=== PATIENT | male | born 1975 | race Two or more races ===

== ENCOUNTER 2019-10-07 14:35 | Emergency (ER) | payer MEDICAID ==
[~2019-10-07] VITALS: Ht 188 cm; Wt 82.6 kg
[2019-10-07 15:54] LABS: Urine Bacteria NONE SEEN /hpf (None Seen); Urine Blood 1+ /uL (Negative); Urine Mucus FEW (None Seen); Urine Specific Gravity 1.019 (1.001-1.035); Urine WBC 1 /hpf (0 - 3)
[2019-10-07 21:53] VITALS: BP 129/89
[2019-10-07] MEDS ORDERED: KETOROLAC TROMETH 60MG/2ML VIAL IM ONE (22:00)
== END 2019-10-07 22:43 | disposition home or self-care (01) ==
LOC: ER 14:35
DX: N13.2 Hydronephrosis with renal and ureteral calculous obstruction (principal)
CPT/HCPCS: 74176; 81001; 96372; 99284; J1885

== ENCOUNTER 2022-05-22 13:33 | Emergency (ER) | payer MEDICAID ==
[~2022-05-22] VITALS: Ht 182.9 cm; Wt 118.8 kg
[2022-05-22 15:25] VITALS: BP 139/84
[2022-05-22] MEDS ORDERED: KETOROLAC TROMETH 60MG/2ML VIAL IM ONE (15:45)
[2022-05-22] MEDS ORDERED: METH750T22 PO (16:16)
[2022-05-22] MEDS ORDERED: IBUP800T27 PO (16:16)
== END 2022-05-22 16:27 | disposition home or self-care (01) ==
LOC: ER 13:33
DX: S39.012A Strain of muscle, fascia and tendon of lower back, initial encounter (principal); Z87.442 Personal history of urinary calculi; X50.0XXA Overexertion from strenuous movement or load, initial encounter; Y93.89 Activity, other specified; Y92.89 Other specified places as the place of occurrence of the external cause; Y99.8 Other external cause status
CPT/HCPCS: 72100; 96372; 99283; J1885

== ENCOUNTER 2024-02-15 23:30 | Emergency (ER) | payer MEDICAID ==
[~2024-02-15] VITALS: Ht 188 cm; Wt 108.9 kg
[~2024-02-15 23:30] MED LIST: IBUP-1456 PO; METH-1182 PO
--- NOTE | 2024-02-16 | ED.PDOC ---
History of Present Illness HPI Comments A 48 year old male brought in my EMS with son present, presents to the ED with a chief complaint of nosebleed. Son states the patient had 3 nosebleeds today throughout the day, lasting about 5-7 minutes each time. Patient checked his BP two different times and it was around 170/110. Patient has not seen PCP for a few years, has a past medical history of Asthma, HTN, Kidney stones and is not taking any medication. Son also states the patient was experiencing a cough yesterday with blood in phlegm. Denies dizziness, chest pain, shortness of breath, congestion, headache, blurry vision. No other symptoms or modifying factors present at this time. Chief Complaint: High Blood Pressure Time Seen by MD: 23:47 Primary Care Provider: ESTHER Kline Notes: Medications, Allergies Allergies: Coded Allergies: NO KNOWN ALLERGIES (Unverified , 10/07/19) Home Meds Active Scripts Methocarbamol (Methocarbamol) 750 Mg Tab, 750 MG PO QHSP PRN, #20 TAB Prov:ERIN CARVAJAL 05/22/22 Ibuprofen (Ibuprofen) 800 Mg Tab, 1 TAB PO TID, #30 TAB Prov:ERIN CARVAJAL 05/22/22 Information Source: Patient, Relative (Child), Emergency Med Personnel Mode of Arrival: EMS Severity: Moderate Timing: Hours Duration: Since onset Prehospital treatment: None Vital Signs Vital Signs Date Time Temp Pulse Resp B/P (MAP) Pulse Ox O2 Delivery O2 Flow Rate FiO2 02/16/24 02:25 160/107 02/16/24 02:20 70 18 97 Room Air* 0 21 02/16/24 02:20 98.3 98.3 Physical Exam General: Awake, alert and oriented. No acute distress. Skin: Skin in warm, dry and intact. Appropriate color for ethnicity. Nailbeds pink with no cyanosis. HEENT: The head is normocephalic and atraumatic. Conjunctivae are clear without exudates or hemorrhage. Sclera is non-icteric. EOM are intact. No signs of nystagmus. Eyelids are normal in appearance without swelling or lesions. Oral mucosa is pink and moist. No epistaxis. No septal hematoma. Neck: The neck is supple with normal range of motion. No JVD. Cardiac: Heart rate and rhythm are normal. No murmurs, gallops, or rubs are auscultated. Respiratory: No signs of respiratory distress. Lung sounds are clear in all lobes bilaterally without rales, ronchi, or wheezes. Abdominal: Abdomen is soft, non-tender without distention. Bowel sounds are present and normoactive in all four quadrants. Extremities: Upper and lower extremities are atraumatic in appearance without deformity or edema. Neurological: The patient is awake, alert and oriented to person, place, and time with normal speech. Speech is clear. There is no facial asymmetry. Psychiatric: Appropriate mood and affect. Good judgement and insight. No visual or auditory hallucinations. Review of Systems: REVIEW OF SYSTEMS: No fever, no chills, or fatigue HEENT: No sore throat, no earache, no congestion, no neck pain. Positive nosebleed Cardiac: No chest pain. No palpitations. Lungs: No shortness of breath, positive cough. Positive hemoptysis, resolved GI: No nausea, no vomiting, no diarrhea, no constipation, no abdominal pain : No dysuria, frequency, or urgency. No hematuria. Musculoskeletal: No joint pain , no joint swelling, no extremity edema. Skin: No rash, no itching. Neuro: No headache, no dizziness, no weakness Past Medical History PAST MEDICAL HISTORY: Asthma, Kidney Stones Surgical History: Denies all surgeries Family History Family History: Reviewed,noncontributory to illness Social History Smoker: Non-Smoker Alcohol: Denies ETOH Use Drugs: Denies Drug Use Lives In: Home Was a procedure done? Was a procedure done?: No Differential Dx Considerations may include: Allergic rhinitis, hypertensive urgency, hypertensive emergency, coagulopathy, pulmonary embolism, pneumonia, bronchitis, other X-Ray, Labs, Meds, VS Vital Signs Date Time Temp Pulse Resp B/P (MAP) Pulse Ox O2 Delivery O2 Flow Rate FiO2 02/16/24 02:25 160/107 02/16/24 02:20 70 18 97 Room Air* 0 21 02/16/24 02:20 98.3 70 18 160/107 (124) 97 98.3 02/15/24 23:35 98.2 76 18 181/98 (125) 99 Lab Test 02/15/24 23:55 Range/Units White Blood Count 11.9 H 4.4-10.8 10^3/uL Red Blood Count 5.27 4.5-5.90 10^6/uL Hemoglobin 15.4 13.5-17.5 g/dL Hematocrit 45.3 41.0-53.0 % Mean Corpuscular Volume 85.9 80.0-100.0 fL Mean Corpuscular Hemoglobin 29.3 28.0-32.0 pg Mean Corpuscular Hemoglobin Concent 34.1 32.0-36.0 g/dL Red Cell Distribution Width 13.1 11.8-14.3 % Platelet Count 135 L 140-450 10^3/uL Mean Platelet Volume 11.7 H 6.9-10.8 fL Neutrophils (%) (Auto) 63.1 37.0-80.0 % Lymphocytes (%) (Auto) 25.7 10.0-50.0 % Monocytes (%) (Auto) 5.9 0.0-12.0 % Eosinophils (%) (Auto) 4.3 0.0-7.0 % Basophils (%) (Auto) 1.0 0.0-2.0 % Neutrophils # (Auto) 7.5 1.6-8.6 10 ^3/uL Lymphocytes # (Auto) 3.1 0.4-5.4 10 ^3/uL Monocytes # (Auto) 0.7 0-1.3 10 ^3/uL Eosinophils # (Auto) 0.5 0-0.8 10 ^3/uL Basophils # (Auto) 0.1 0-0.2 10 ^3/uL Nucleated Red Blood Cells 0.0 % Prothrombin Time 10.4 9.3-11.8 sec Prothrombin Time INR 0.98 0.9-1.15 Activated Partial Thromboplast Time 28.2 24.5-34.5 SEC Sodium Level 141 136-145 mmol/L Potassium Level 4.4 3.5-5.1 mmol/L Chloride Level 105 98-107 mmol/L Carbon Dioxide Level 29 20-31 mmol/L Anion Gap 7 5-15 Blood Urea Nitrogen 14 9-23 mg/dL Creatinine 0.99 0.700-1.30 mg/dL Glomerular Filtration Rate Calc 95 >90 mL/min BUN/Creatinine Ratio 14.1 10.0-20.0 Serum Glucose 105 74-106 mg/dL Calcium Level 9.9 8.7-10.4 mg/dL Total Bilirubin 0.5 0.2-1.0 mg/dL Aspartate Amino Transferase (AST) 25 13-40 U/L Alanine Aminotransferase (ALT) 62 H 7-40 U/L Alkaline Phosphatase 84 46-116 U/L Total Protein 7.1 5.7-8.2 g/dL Albumin 4.9 H 3.2-4.8 g/dL [place] [id number] Ph: [phone] DIAGNOSTIC IMAGING Diagnostic Imaging Report : [id number] Signed PATIENT: KRISTY GONZALEZCCT: [id number] UNIT: [id number] : 1975 LOC: ER ROOM / BED: / AGE / SEX: 48 / M ADM STATUS: REG ER SERVICE 54 ORDERING PHYSICIAN: FELIX VILLEGAS MD PROCEDURE(s): CXR2 - CHEST TWO VIEWS ROUTINE REASON: hemoptysis ORDER NUMBER(s): [id number], ACCESSION NUMBER(s): [id number] CHEST RADIOGRAPH Indication: hemoptysis Technique: Frontal and lateral view of the chest was obtained Comparison: None FINDINGS: Lines and Tubes: None Lungs: Clear Pleura: No effusion. No pneumothorax. Cardiomediastinal contours: Unremarkable Bones: Unremarkable IMPRESSION: 1. No evidence of acute disease. ATED BY: FABBY RICE MD DICTATED DATE/TIME: 02/16/2435 SIGNED BY: FABBY RICE MD SIGNED DATE/TIME: 02/16/2435 CC: Time of 1ST Reevaluation: 00:17 Reevaluation 1ST: Unchanged Patient Education/Counseling: Diagnosis, Treatment, Prognosis Family Education/Counseling: Diagnosis, Treatment, Prognosis Departure 1 Departure Time of Disposition: 01:28 Impression: Primary Impression: Epistaxis Additional Impression: Elevated blood pressure reading Disposition: 01 HOME / SELF CARE / HOMELESS Condition: Stable Additional Instructions: ED DISCHARGE INSTRUCTIONS Instructions: Please read all instructions provided in this packet carefully. Although you have been discharged from the Emergency Department, this does not mean that you have a "clean bill of health". No definitive diagnosis for your symptoms has been made today. It is possible that you are in the process of dev eloping a serious illness. This is why you must return to the ED without fail if any new or worsening symptoms (especially if your symptoms include continued nosebleeds, bleeding from elsewhere, coughing up blood, chest pain, trouble breathing, abdominal pain, fever, headache, confusion, trouble seeing, or trouble walking) It is also very important that you see a primary care doctor within the next 3-5 days to follow up. Call to schedule an appointment with a new primary care provider. [phone] Dr. Ole Lange or Dr. Karri Rooney If you are unable to get an appointment, return to the ED for re-evaluation. What is high blood pressure? Blood pressure is a measure of how hard the blood pushes against the mendoza of your arteries. It's normal for blood pressure to go up and down throughout the day. But if it stays up, you have high blood pressure (hypertension). Two numbers tell you your blood pressure. The first (top) number is the systolic pressure. It shows how hard the blood pushes when your heart is pumping. The second (bottom) number is the diastolic pressure. It shows how hard the blood pushes between heartbeats, when your heart is relaxed and filling with blood. High blood pressure means that the top number stays high, or the bottom number stays high, or both. For diagnosis, the top number may be 130 to 140 or higher. The bottom number may be 80 to 90 or higher High blood pressure increases the risk of stroke, heart attack, and other problems. What causes it? Experts don't fully understand the exact cause of high blood pressure. But they know that some things are linked to it. These include aging, drinking too much a lcohol, eating a lot of sodium (salt), being overweight, and not exercising. What are the symptoms? High blood pressure doesn't usually cause symptoms. Most people don't know they have it until they go to the doctor for some other reason. Very high blood pressure (such as 180/120 or higher) can cause severe headaches and vision problems. How is it diagnosed? During a routine visit, your doctor will measure your blood pressure. Your doctor may ask you to test it again when you are home.[id number], footnote4 This is because your blood pressure can change throughout the day. To diagnose high blood pressure, your doctor needs to know if your blood pressure is high throughout the day. How is high blood pressure treated? The two types of treatment for high blood pressure are lifestyle changes and medicines. Your doctor may ask you to lose extra weight, eat less sodium, and be more active. If these lifestyle changes don't help enough, you may also need to take daily medicines. What can you do to prevent it? A heart-healthy lifestyle can help you prevent high blood pressure. These changes are even more important if you have risk factors for high blood pressure that you can't change. These risk factors include race, age, and having others in your family who have high blood pressure. Here are some things you can do. Stay at a healthy weight. Eat heart-healthy foods, and limit sodium. Get regular exercise. Limit alcohol to 2 drinks a day for men and 1 drink a day for women. What Happens When blood pressure is high, it starts to damage blood vessels, called arteries, and your heart. Damaged arteries can lead to problems throughout your body. The higher your blood pressure, the greater your risk. This damage doesn't happen all at once. It happens slowly over time. But you can't tell that it's happening, because you don't feel anything. High blood pressure can lead to: Heart failure. High blood pressure makes your heart work harder. And that can lead to heart failure, which means your heart doesn't pump as much blood as your body needs. Heart attack and stroke. High blood pressure can cause atherosclerosis or "hardening of the arteries." This problem happens when the inner lining of an artery is damaged. Fat and calcium can build up in the artery wall. This buildup is called plaque. Over time, plaque can cause problems throughout the body. These problems include coronary artery disease, peripheral artery disease, heart attack, and stroke. Vision loss and kidney disease. Arteries also carry blood and oxygen to organs like your eyes and kidneys. If high blood pressure damages those arteries, it can lead to vision loss and kidney disease. Problems in your brain. High blood pressure can also affect the arteries in your brain, raising the risk of dementia and a stroke caused by bleeding in the brain. High blood pressure usually can't be cured. But it can be controlled. Lowering blood pressure lowers the risk of damaging blood vessels. To lower it, you may make lifestyle changes, take medicines each day, or both. Nosebleeds: Care Instructions Overview Nosebleeds are common, especially if you have colds or allergies. Many things can cause a nosebleed. Some nosebleeds stop on their own with pressure. Others need packing. Some get cauterized (sealed). If you have gauze or other packing materials in your nose, you will need to follow up with your doctor to have the packing removed. You may need more treatment if you get nosebleeds a lot. Follow-up care is a aquino part of your treatment and safety. Be sure to make and go to all appointments, and call your doctor if you are having problems. It's also a good idea to know your test results and keep a list of the medicines you take. How can you care for yourself at home? If you get another nosebleed: Gently blow your nose to clear any clots. Sit up and tilt your head slightly forward. This keeps blood from going down your throat. Use your thumb and index finger to pinch the front, soft part of your nose shut for at least 15 minutes. Use a clock. Do not check to see if the bleeding has stopped before the 15 minutes are up. If the bleeding has not stopped, pinch your nose shut for another 10 to 15 minutes. Using a nasal decongestant spray such as oxymetazoline (Afrin) before pinching your nose can also help to stop the bleeding. Be safe with medicines. Read and follow all instructions on the label. When the bleeding has stopped, try not to pick, rub, or blow your nose for several hours. Avoiding these things helps keep your nose from bleeding again. To prevent nosebleeds Do not blow your nose too hard. Try not to lift or strain after a nosebleed. Raise your head on a pillow while you sleep. Put a thin layer of a saline- or water-based nasal gel, such as NasoGel, inside your nose. Put it on the septum, which divides your nostrils. This will prevent dryness that can cause nosebleeds. Use a vaporizer or humidifier to add moisture to your bedroom. Follow the dire ctions for cleaning the machine. Do not use aspirin, ibuprofen (Advil, Motrin), or naproxen (Aleve) for 36 to 48 hours after a nosebleed unless your doctor tells you to. You can use acetaminophen (Tylenol) for pain relief. Talk to your doctor about stopping any other medicines you are taking. Some medicines may make you more likely to get a nosebleed. Do not use cold medicines or nasal sprays without first talking to your doctor. They can make your nose dry. Do not snort tobacco, drugs, or any other drying substances up your nose. When should you call for help? Call 911 anytime you think you may need emergency care. For example, call if: You passed out (lost consciousness). Call your doctor now or seek immediate medical care if: Your nose is still bleeding after you have pinched the nose shut 2 times for 15 minutes each time (30 minutes total). There is a lot of blood running down the back of your throat even after you pinch your nose and tilt your head forward. You feel weak or lightheaded. You have a nosebleed after a head injury. Watch closely for changes in your health, and be sure to contact your doctor if: You get nosebleeds often, even if they stop. You do not get better as expected. Comments 48-year-old male who presented with epistaxis throughout the is a resolved by the time he was at the emergency department. Elevated blood pressure at home. Patient has no known diagnosis of hypertension, he does not have a primary care provider. Workup here remarkable. Blood pressure improved. Patient felt stable for discharge home, he is advised to establish with and follow up with the primary care provider for further evaluation and reassessment. He is advised to return to the emergency department if he is unable to get an appointment within the next 3-5 days. I reviewed the following notes from the pt's past medical encounters: None available for review The following tests were ordered, and results were reviewed by me: Lab studies, EKG, chest x-ray Additional information was gathered from interviewing the following independent historians: EMS personnel, patient's son at bedside I reviewed and agreed with the following test results read by other providers: Chest x-ray agree with radiologist's interpretation. EKG independently interpreted I discussed treatments and results with medical personnel and: N/A Diagnosis or treatment significantly limited by social determinants of health: Patient does not have a PCP Critical Care Note Critical Care Time?: No Stability Stability form required: No I personally scribed for FELIX VILLEGAS MD ([email or web address]) on 02/16/24 at 00:00. Electronically submitted by Nicolle oCrtes ([email or web address]). I personally scribed for FELIX VILLEGAS MD ([email or web address]) on 02/16/24 at 01:23. Electronically submitted by Nicolle Cortes ([email or web address]). FELIX VILLEGAS MD Feb 16, 2024 00:00
[2024-02-16 00:10] LABS: Basophils # (auto) 0.1 10 ^3/uL (0-0.2); Eosinophils # (auto) 0.5 10 ^3/uL (0-0.8); Eosinophils % (auto) 4.3 % (0.0-7.0); Hematocrit 45.3 % (41.0-53.0); Hemoglobin 15.4 g/dL (13.5-17.5); Lymphocytes # (auto) 3.1 10 ^3/uL (0.4-5.4); Lymphocytes % (auto) 25.7 % (10.0-50.0); Mean Corpuscular Hemoglobin 29.3 pg (28.0-32.0); Mean Corpuscular Hgb Conc. 34.1 g/dL (32.0-36.0); Mean Corpuscular Volume 85.9 fL (80.0-100.0); Monocytes # (auto) 0.7 10 ^3/uL (0-1.3); Monocytes % (auto) 5.9 % (0.0-12.0); Neutrophils # (auto) 7.5 10 ^3/uL (1.6-8.6); Neutrophils % (auto) 63.1 % (37.0-80.0); Platelet Count (auto) 135 10^3/uL (140-450); Red Blood Cells 5.27 10^6/uL (4.5-5.90); Red Cell Distribution Width 13.1 % (11.8-14.3); White Blood Cell 11.9 10^3/uL (4.4-10.8)
[2024-02-16 00:24] LABS: INR 0.98 (0.9-1.15); Partial Thromboplastin Time 28.2 SEC (24.5-34.5); Prothrombin Time 10.4 sec (9.3-11.8)
[2024-02-16 00:25] LABS: Alkaline Phosphatase 84 U/L (46-116); Anion Gap 7 (5-15); Aspartate Aminotransferase 25 U/L (13-40); BUN/Creatinine Ratio 14.1 (10.0-20.0); Blood Urea Nitrogen 14 mg/dL (9-23); Calcium 9.9 mg/dL (8.7-10.4); Carbon Dioxide 29 mmol/L (20-31); Chloride 105 mmol/L (98-107); Glucose 105 mg/dL (74-106); Potassium 4.4 mmol/L (3.5-5.1); Sodium 141 mmol/L (136-145)
[2024-02-16 00:26] LABS: Bilirubin, Total 0.5 mg/dL (0.2-1.0); Total Protein 7.1 g/dL (5.7-8.2)
[2024-02-16 00:29] LABS: Alanine Aminotransferase 62 U/L (7-40); Albumin 4.9 g/dL (3.2-4.8)
--- NOTE | 2024-02-16 00:38 | DVH ---
CHEST RADIOGRAPH Indication: hemoptysis Technique: Frontal and lateral view of the chest was obtained Comparison: None FINDINGS: Lines and Tubes: None Lungs: Clear Pleura: No effusion. No pneumothorax. Cardiomediastinal contours: Unremarkable Bones: Unremarkable IMPRESSION: 1. No evidence of acute disease.
[2024-02-16 02:20] VITALS: BP 160/107; PULSE 70; RESP 18; TEMP 98.3; O2SAT 97
[2024-02-16] MEDS: cloNIDine HCL 0.1 MG TAB PO ONE (02:25)
== END 2024-02-16 02:31 | disposition home or self-care (01) ==
LOC: ER 23:30 → EDBD 23:30 → ER 02-16 02:31
DX: R04.0 Epistaxis (principal); I10 Essential (primary) hypertension; J45.909 Unspecified asthma, uncomplicated; Z79.1 Long term (current) use of non-steroidal anti-inflammatories (NSAID); Z79.899 Other long term (current) drug therapy
CPT/HCPCS: 36415; 71046; 80053; 85025; 85610; 85730; 99284; J7030